=== PATIENT | male | born 1935 | race Caucasian/White ===

== ENCOUNTER 2017-10-02 18:04 | Inpatient (IN) ==
[2017-10-02] MEDS ORDERED: *HR* Dextrose 50 % in Water (Syg) 50 ML SYRINGE IVP PRN (20:31)
[2017-10-02] MEDS ORDERED: Dextrose Gel 15 GM/37.5 ML TUBE PO PRN ×2 (20:31)
[2017-10-02] MEDS ORDERED: D5% in Water 1,000 ML IVC PRN (20:31)
[2017-10-02] MEDS ORDERED: *HR* LORazepam 0.5 MG TABLET PO PRN (20:33)
[2017-10-02] MEDS ORDERED: Naloxone 0.4 MG/ML INJ IVP PRN (20:34)
[2017-10-02] MEDS ORDERED: Acetaminophen 325 MG TABLET PO PRN (20:34)
--- NOTE | 2017-10-02 20:39 | Internal Med History&Physical ---
Date of Encounter: 10/03/17 Time of Encounter: 20:35 Internal Medicine - H&P: HPI Chief complaint: femur fracture Admitted From: Direct Admit Plans for Post Hospital Care: Home History of present illness: Mr. Wang is a 82 year old male with PMH of CKD3, DM, hypothyroidism, BPH, lung cancer in remission who is transferred from [facility] as he was found to have a left comminuted fracture of the intertrochanteric portion of the left femoral neck. Rest of work up there showed mild leukocytosis and creatinine consistent with known CKD3. Patient had an accidental fall today while riding a cleaning porter. He went to step out and tripped on an air hose hitting concrete on his left side and was in pain and unable to move. No LOC. Denies fever/chills/ nausea/vomiting/blurry vision/headache/diarrhea/constipation/abdominal pain/ chest pain/shortness of breath/urinary symptoms/or neurological symptoms. Orthopedics were consulted from there and asked for the patient to transfer. EKG NSR with no ischemic changes. Patient is currently pain controlled Past Med Surg Social Fam HX - Past Medical History Medical history: cancer, diabetes, hyperlipidemia, hypertension Psychiatric history: no psych history - Past Surgical History Surgical History: herniorrhaphy, other - Social History Smoking Status: Former smoker Smokeless Tobacco Status: No Alcohol use: none Drug use: none - Family History Mother Living Status: Hx Family Cardiac Disorders: Yes Father Living Status: Internal Medicine - H&P: Meds Albuterol Sulfate [Albuterol Inhaler] 2 puff IH Q6HR PRN 12/19/14 [History] Levothyroxine Sodium [Synthroid] 50 mcg PO DAILY 12/19/14 [History] Finasteride [Proscar] 5 mg PO DAILY tablet 04/25/15 [Rx] Omeprazole [PriLOSEC] 40 mg PO QDPC #0 04/25/15 [Rx] Cyanocobalamin (B-12) [Vitamin B12] 1,000 mcg PO DAILY #90 tablet 11/13/16 [Rx] Folic Acid 1 mg PO DAILY #90 tablet 11/13/16 [Rx] GlipiZIDE [Glipizide Xl] 5 mg PO DAILY 11/13/16 [History] Pioglitazone HCl [Actos] 30 mg PO DAILY 11/13/16 [History] LORazepam [Ativan] 0.5 mg PO HS PRN 07/20/17 [History] Tamsulosin [Flomax] 0.4 mg PO DAILY 10/02/17 [History] 3 Allergy/AdvReac Type Severity Reaction Status Date / Time levofloxacin [From Levaquin] AdvReac Unknown Unknown Verified 07/20/17 11:56 iodine AdvReac Itching Verified 07/20/17 11:56 All Systems PM: A 10-system review of systems was performed and is negative for pertinent findings except as documented above in the HPI. Review of systems: All systems reviewed are negative except those mentioned above - Constitutional Vitals: Temp Pulse Resp BP Pulse Ox 98.2 F 92 16 155/91 97 10/02/17 20:03 10/02/17 20:03 10/02/17 20:03 10/02/17 20:03 10/02/17 20:03 Exam: GEN: NAD HEENT: AT, NC, No cyanosis, oral mucosa is moist, No JVD Lymphatics: No lymphadenoapthy Eyes: Extrocular muscles intact, anicteric CVS:RRR. S1, S2, No m/r/g RESP: CTAB ABD: Soft, NT, ND, +BS EXT: Left upper leg with swelling and deformity noted., unable to move it. Externally rotated. No rashes, 2+ DP NEURO: Nonfocal, CN II-XII intact, No focal motor or sensory deficits Psych: Cooperative, Not anxious or depressed Internal Med - H&P Results - Labs CBC & Chem 7: 10/03/17 00:25 10/03/17 00:25 - Assessment and plan (1) Femur fracture, left Current Visit: Yes Status: Acute Assessment and plan: Admit to hospitalist. Pain control. Consult orthopedics. Likely needs operative management for this. Nothing by mouth after midnight. Patient does not need any further cardiac workup to be cleared for surgery. Qualifiers: Encounter type: initial encounter Femur location: neck Fracture type: closed Qualified Code(s): S72.002A - Fracture of unspecified part of neck of left femur, initial encounter for closed fracture (2) BPH (benign prostatic hyperplasia) Current Visit: Yes Status: Acute Assessment and plan: Continue home tamsulosin. Qualifiers: Lower urinary tract symptom presence: symptoms absent Qualified Code(s): N40.0 - Benign prostatic hyperplasia without lower urinary tract symptoms (3) Diabetes mellitus Current Visit: Yes Status: Acute Assessment and plan: We will place the patient on insulin sliding scale. Accu-Cheks. Qualifiers: Diabetes mellitus type: type 2 Diabetes mellitus intermediate school teacher insulin use: without intermediate school teacher use Diabetes mellitus complication status: with kidney complications Diabetes mellitus complication detail: with chronic kidney disease Chronic kidney disease stage: stage 3 (moderate) Qualified Code(s): E11.22 - Type 2 diabetes mellitus with diabetic chronic kidney disease; N18.3 - Chronic kidney disease, stage 3 (moderate) (4) Hypothyroidism Current Visit: Yes Status: Acute Assessment and plan: Resume home thyroid medication. Qualifiers: Hypothyroidism type: unspecified Qualified Code(s): E03.9 - Hypothyroidism , unspecified (5) Lung cancer Current Visit: No Status: Chronic Assessment and plan: In remission. f/u with outpatient oncologist Qualifiers: Laterality: left Lung location: unspecified part of lung Qualified Code(s ): C34.92 - Malignant neoplasm of unspecified part of left bronchus or lung (6) DVT prophylaxis Current Visit: Yes Status: Acute Assessment and plan: heparin SQ. - Time Spent With Patient Total time spent is greater than 50% in coordination of care (as documented) at patient's floor/unit and/or counseling patient:
[2017-10-02] MEDS ORDERED: *HR* FentaNYL (PF) 100 MCG/2 ML VIAL IVP ONE (20:56)
[2017-10-02] MEDS ORDERED: *HR* Heparin 5,000 UNIT/ML VIAL SQ SCH (22:00)
--- NOTE | 2017-10-02 23:26 | Orthopedic Consult Note ---
Date of Encounter: 10/02/17 Time of Encounter: 23:22 History of Present Illness Chief complaint: Left hip pain HPI: Mr. Wang is a 82 year old male who sustained an injury to his left hip when he got tangled up in an air hose and he fell in his carotids landing on his left hip. Had immediate pain and was unable to ambulate. He presented to [facility] where x-rays taken revealed evidence of a left hip fracture. He was transferred to [facility] for definitive management. Patient denies other injuries. Denies neurovascular complaints. I reviewed the patient's completed history and physical examination as charted in the medical record. Examination reveals the left lower extremity to be held and a rotated and foreshortened position. Distal neurosensory exam is grossly intact. X-rays of the left hip reveal a displaced comminuted peritrochanteric-type fracture. Laboratory data includes a hemoglobin of 12.4 with a normal platelet count. Bleeding times are normal. BUN/creatinine are chronically elevated as patient has chronic kidney disease. Impression: Peritrochanteric fracture left hip Recommendation: I discussed with the patient that this is a surgical fracture in the adult and would recommend proceeding with intramedullary nailing of the left hip. We discussed the surgical procedure as well as potential risks and complications including but not limited to bleeding infection blood clots nerve injury stiffness malunion nonunion as well as rotational and leg length deformities. The patient understands and agrees with the surgical intervention. He has signed informed consent for the surgery. We will anticipate proceeding with surgery tomorrow when operating time and implants are available. Thank you very much for allowing me to seen care for Mr. Wang. Sincerely, Geovany Pond,DO Past Med Surg Social Fam HX - Past Medical History Medical history: cancer, diabetes, hyperlipidemia, hypertension Psychiatric history: no psych history - Past Surgical History Surgical History: herniorrhaphy, other - Social History Smoking Status: Former smoker Smokeless Tobacco Status: No Alcohol use: none Drug use: none - Family History Mother Living Status: Age at : 83 Cause of : MA Hx Family Cardiac Disorders: Yes Father Living Status: Age at : 83 Cause of : MA Medications and Allergies Albuterol Sulfate [Albuterol Inhaler] 2 puff IH Q6HR PRN 12/19/14 [History] Levothyroxine Sodium [Synthroid] 50 mcg PO DAILY 12/19/14 [History] Finasteride [Proscar] 5 mg PO DAILY tablet 04/25/15 [Rx] Omeprazole [PriLOSEC] 40 mg PO QDPC #0 04/25/15 [Rx] Cyanocobalamin (B-12) [Vitamin B12] 1,000 mcg PO DAILY #90 tablet 11/13/16 [Rx] Folic Acid 1 mg PO DAILY #90 tablet 11/13/16 [Rx] GlipiZIDE [Glipizide Xl] 5 mg PO DAILY 11/13/16 [History] Pioglitazone HCl [Actos] 30 mg PO DAILY 11/13/16 [History] LORazepam [Ativan] 0.5 mg PO HS PRN 07/20/17 [History] Tamsulosin [Flomax] 0.4 mg PO DAILY 10/02/17 [History] 3 Allergy/AdvReac Type Severity Reaction Status Date / Time levofloxacin [From Levaquin] AdvReac Unknown Unknown Verified 07/20/17 11:56 iodine AdvReac Itching Verified 07/20/17 11:56 All Systems Reviewed: The remainder of the systems were reviewed and are negative Physical Exam - Constitutional Vitals: Temp Pulse Resp BP Pulse Ox 98.2 F 92 16 155/91 97 10/02/17 20:03 10/02/17 20:03 10/02/17 20:03 10/02/17 20:03 10/02/17 20:03 Results - Labs Labs: All other labs normal. - Diagnostic results Hip x-ray: image reviewed Consult Discharge Plan - Plan Referrals: Tiara Dodge DO [Primary Care Provider] - NONE,PCP [Family Provider] -
[2017-10-02] MEDS: *HR* HYDROcodone/Acet 5/325 mg TABLET PO PRN (23:59)
[2017-10-02] MEDS: Insulin LISPRO 300 UNITS/3 ML VIAL SQ SCH (23:59)
[2017-10-03 00:36] LABS: Basophils % 0.2 %; Eosinophils % 0.1 %; Hematocrit 31.7 % (37.5-50.1); Hemoglobin 10.4 g/dL (12.9-16.9); Immature Granulocytes % 0.4 % (0-4); Lymphocytes # 1.5 K/mcL (0.6-4.6); Lymphocytes % 15.9 %; Mean Corpuscular HGB Conc 32.8 g/dL (31.6-35.5); Mean Corpuscular Hemoglobin 28.9 pg (28.0-33.3); Mean Corpuscular Volume 88.1 fL (83.0-100.0); Mean Platelet Volume 9.1 fL (9.4-12.4); Monocytes % 10.7 %; Neutrophils # 6.8 K/mcL (1.6-8.9); Nucleated Red Blood Cells 0.2 /100 WBC (0); Platelet Count 210 K/mcL (140-400); Red Cell Distribution Width 14.1 % (11.5-14.5); Segmented Neutrophils % 72.7 %
[2017-10-03 00:56] LABS: Calcium 8.8 mg/dL (8.6-10.3); Magnesium 1.9 mg/dL (1.6-2.6); Potassium 5.3 mEq/L (3.5-5.1)
[2017-10-03] MEDS: Insulin LISPRO 300 UNITS/3 ML VIAL SQ SCH ×2 (05:48→18:09)
[2017-10-03] MEDS: *HR* HYDROcodone/Acet 5/325 mg TABLET PO PRN ×2 (05:48→22:07)
[2017-10-03] MEDS ORDERED: CeFAZolin Pre 2,000 MG/100 ML 2,000 MG/100 ML BAG IVPB ONE (08:00)
--- NOTE | 2017-10-03 08:10 | Anesthesia Evaluation PreOp ---
Date of Encounter: 10/03/17 Time of Encounter: 08:30 - Past History Planned Operation: Left IM Nailing Cardiac History: HTN, Hyperlipidemia Pulmonary History: Denies Any Significant HX HAND MOLD MAKER History: Denies Any Significant HX Other Medical History: Renal (CKD Stage 3), Diabetes Type II Anesthesia History: No Prior Anesthetic Complications Alcohol Use: none Drug use: none Medications and Allergies Albuterol Sulfate [Albuterol Inhaler] 2 puff IH Q6HR PRN 12/19/14 [History] Levothyroxine Sodium [Synthroid] 50 mcg PO DAILY 12/19/14 [History] Finasteride [Proscar] 5 mg PO DAILY tablet 04/25/15 [Rx] Omeprazole [PriLOSEC] 40 mg PO QDPC #0 04/25/15 [Rx] Cyanocobalamin (B-12) [Vitamin B12] 1,000 mcg PO DAILY #90 tablet 11/13/16 [Rx] Folic Acid 1 mg PO DAILY #90 tablet 11/13/16 [Rx] GlipiZIDE [Glipizide Xl] 5 mg PO DAILY 11/13/16 [History] Pioglitazone HCl [Actos] 30 mg PO DAILY 11/13/16 [History] LORazepam [Ativan] 0.5 mg PO HS PRN 07/20/17 [History] Tamsulosin [Flomax] 0.4 mg PO DAILY 10/02/17 [History] 3 Allergy/AdvReac Type Severity Reaction Status Date / Time levofloxacin [From Levaquin] AdvReac Unknown Unknown Verified 07/20/17 11:56 iodine AdvReac Itching Verified 07/20/17 11:56 - Meds/Allergy Pre-op Review Medications Reviewed: Yes Allergies Reviewed: Yes Beta Blockers on Current Med List: No Anesthesia Results - Labs 10/03/17 00:25 10/03/17 00:25 - Imaging Additional studies: ECHO 2014 EF 70%, mild left ventricular outlet obstruction, no pulm htn Anesthesia Exam Vital Signs/O2 Sat/Glucose, Most Current Temp Pulse Resp BP Pulse Ox 10/03/17 07:30 100 10/03/17 06:37 98.6 F 87 17 103/56 100 10/03/17 04:15 98.1 F 61 16 124/62 95 Height: 5'7 Weight: 205 lbs NPO (# of Hours): MN Pain Scale: 2 - HEENT Pupil (Motor): Pupils equal, EOMI Mallampati: II Oral Opening: Greater than 3 - HAND MOLD MAKER LOC: Oriented HAND MOLD MAKER Motor: Normal RUE, Normal LUE, Normal RLE, Normal LLE, Normal Face HAND MOLD MAKER Sensory: Normal: RUE, LUE, RLE, LLE, Face - Cardiac Rhythm: Regular Murmur: None JVD: No Carotid Bruit: No - Pulmonary Breath Sounds: bilateral Clear Respiratory Effort: Symmetrical Anesthesia Assess/Plan ASA Score: 3 (HTN DM CKD) Modified [place] Scale for Level of Consciousness: Cooperative, oriented, and tranquil Anesthetic Plan: General, Regional Monitoring Plan: Standard Monitors Recovery Plan: PACU (Discussed GA and possible RA, agrees to proceed)
[2017-10-03] MEDS ORDERED: *HR* Propofol 200 MG/20 ML VIAL IVP ONE (08:23)
[2017-10-03] MEDS ORDERED: *HR* FentaNYL (PF) 100 MCG/2 ML VIAL ONE ×2 (08:23→11:50)
[2017-10-03] MEDS ORDERED: *HR* Midazolam HCl 2 MG/2 ML VIAL ONE (08:23)
--- NOTE | 2017-10-03 08:28 | Internal Med Progress Note ---
Date of Encounter: 10/03/17 Time of Encounter: 08:00 - Assessment and plan (1) Femur fracture, left Current Visit: Yes Status: Acute Assessment and plan: Plan for intramedullary nailing of the left hip at 9 AM today. Patient is at low risk for cardiac events for his planned noncardiac moderate risk procedure. Qualifiers: Encounter type: initial encounter Femur location: neck Fracture type: closed Qualified Code(s): S72.002A - Fracture of unspecified part of neck of left femur, initial encounter for closed fracture (2) Lung cancer Current Visit: No Status: Chronic Assessment and plan: Metastatic adenocarcinoma of the left lung. "Diagnosis: 1. Metastatic adenocarcinoma of the lung. Initially diagnosed with moderately differentiated adenocarcinoma by bronchoscopy 08/08/14. KRAS/P53 positive. Staging studies revealed left > right adrenal lesions with biopsy 08/28/14 confirming left adrenal metastasis. Received carbo/pemetrexed 08/23-12/07/14 with a good response followed by concurrent chemoradiation with weekly carboplatin/ paclitaxel completed 02/12/25. He has been cancer free since. 2. 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 Carboplatin with pemetrexed 08/23-12/07/14 2. Concurrent chemoradiation with weekly Carboplatin and Paclitaxel 01/03-" Qualifiers: Laterality: left Lung location: unspecified part of lung Qualified Code(s ): C34.92 - Malignant neoplasm of unspecified part of left bronchus or lung (3) BPH (benign prostatic hyperplasia) Current Visit: Yes Status: Acute Assessment and plan: Continue home tamsulosin. Qualifiers: Lower urinary tract symptom presence: symptoms absent Qualified Code(s): N40.0 - Benign prostatic hyperplasia without lower urinary tract symptoms (4) Diabetes mellitus Current Visit: Yes Status: Acute Assessment and plan: We will place the patient on insulin sliding scale. Accu-Cheks. Qualifiers: Diabetes mellitus type: type 2 Diabetes mellitus prison insulin use: without prison use Diabetes mellitus complication status: with kidney complications Diabetes mellitus complication detail: with chronic kidney disease Chronic kidney disease stage: stage 3 (moderate) Qualified Code(s): E11.22 - Type 2 diabetes mellitus with diabetic chronic kidney disease; N18.3 - Chronic kidney disease, stage 3 (moderate) (5) Hypothyroidism Current Visit: Yes Status: Acute Assessment and plan: Resume home thyroid medication. Qualifiers: Hypothyroidism type: unspecified Qualified Code(s): E03.9 - Hypothyroidism , unspecified (6) DVT prophylaxis Current Visit: Yes Status: Acute Assessment and plan: heparin SQ. - Time Spent With Patient Total time spent is greater than 50% in coordination of care (as documented) at patient's floor/unit and/or counseling patient: 25 - 35 minutes - Subjective Interval history: Reports no pain in the left leg. Intact sensations. Intact circulation to the distal lower extremity. No events overnight. Plan for surgery today morning. - Constitutional Vitals: Temp Pulse Resp BP Pulse Ox 98.6 F 87 17 103/56 100 10/03/17 06:37 10/03/17 06:37 10/03/17 06:37 10/03/17 06:37 10/03/17 07:30 Exam: Physical exam Gen: Comfortable, laying in bed, in no visible distress HEENT: Normocephalic, atraumatic. No conjunctival icterus. Moist oral mucosa. Neck: Supple Lungs: Diminished to auscultation, no foreign sounds Heart: Normal S1-S2, no murmurs rubs or gallops Abdomen: Normoactive bowel sounds, no guarding rigidity or tenderness Extremities: No edema clubbing or cyanosis. Left leg is externally rotated and foreshortened. Neuro: Alert oriented 3, no focal deficits Skin: No skin lesions Internal Medicine: Result - Labs CBC & Chem 7: 10/03/17 00:25 10/03/17 00:25 Labs: Short CBC 10/03/17 Range/Units 00:25 WBC 9.3 (4.3-11.1) K/mcL Hgb 10.4 L D (12.9-16.9) g/dL Hct 31.7 L (37.5-50.1) % Plt Count 210 (140-400) K/mcL Neutrophils # 6.8 (1.6-8.9) K/mcL BMP 10/03/17 00:25 Sodium 138 Potassium 5.3 H Chloride 107 Carbon Dioxide 27 BUN 36 H Creatinine 1.53 H Glucose 266 H Calcium 8.8 Consult Discharge Plan - Plan Referrals: Tiara Dodge DO [Primary Care Provider] - NONE,PCP [Family Provider] -
[2017-10-03] MEDS ORDERED: ceFAZolin 2,000 MG in Water for inj. (sterile) 20 ML 10 ML IVP ONE (08:35)
[2017-10-03] MEDS ORDERED: Famotidine 20 MG/2 ML VIAL ONE (08:41)
[2017-10-03] MEDS ORDERED: Acetaminophen IV 1,000 MG/100 ML INFUS..BTL ONE (08:41)
[2017-10-03] MEDS ORDERED: Finasteride 5 MG TABLET PO SCH (09:00)
[2017-10-03] MEDS ORDERED: Folic Acid 1 MG TABLET PO SCH (09:00)
[2017-10-03] MEDS ORDERED: Cyanocobalamin (B-12) 1,000 MCG TABLET PO SCH (09:00)
[2017-10-03] MEDS ORDERED: *HR* OxyCODONE Immed Rel 5 MG TABLET PO PRN (10:24)
[2017-10-03] MEDS ORDERED: *HR* FentaNYL (PF) 100 MCG/2 ML VIAL IVP PRN (10:24)
[2017-10-03] MEDS ORDERED: ROPIVACAINE HCL/PF 0.5% 30 ML VIAL ONE (12:01)
--- NOTE | 2017-10-03 12:31 | Operative Note ---
Date of procedure: 10/03/17 Pre-op diagnosis: Peritrochanteric fracture left hip Post-op diagnosis: same Procedure: 1. Intramedullary nailing left peritrochanteric femur fracture 2. Fluoroscopic guidance for IM nailing left femur Implants: Synthes 11 mm x 360 mm x 130 degree angle TFNA with a 100 mm x 11 mm helical blade and a 42 mm x 5.0 mm distal locking screw Complications: None Anesthesia: GETA Surgeon: Geovany Pond Was there an pharmacy sales assistant present: No Estimated blood loss (cc): 150 Specimen: None Condition: stable (None) Disposition: PACU Procedure in Detail: Gross findings: Preoperative x-rays revealed a complex comminuted peritrochanteric-type fracture of the left hip in this 82-year-old gentleman. Bone quality appeared good. There was deformity. The fracture was reduced into overall excellent position. There were at least 5 major fracture fragments. The fracture was then stabilized with a long trochanteric femoral nail with distal locking. A well reduced fracture with excellent implant position was identified with multiplane are fluoroscopy. Procedure: Patient was taken the operating room him on the hospital bed was administered general anesthesia. Once adequate level anesthesia had been obtained the patient was transferred to the [facility] fracture table. Left lower extremity was placed in longitudinal traction right lower extremity was positioned out of harm's way with a well leg packer. At this time initial reduction was performed utilizing a combination of traction adduction and some internal rotation. The fracture was markedly improved with still some offset. The left hip and leg were then prepped and draped in normal standard fashion for surgery. Incision was created superior to the greater trochanter. She was carried through the abundant adipose tissue down the level of the tensor fascia rene which was split parallel with its fibers. Fracture hematoma was encountered and evacuated. The tip of the trochanter was identified. The initial guidewire was plateau passed into the trochanter and the greater trochanter was opened up with the large reamer. At this time a ball-tip guide wire was passed through the opening created in the greater trochanter and passed down the femur with position verified to be intramedullary with multiplane are fluoroscopy. Length was measured and a 360 mm nail length was selected. At this time the canal was reamed with flexible reamers up to including a size 12.5 mm. The selected nail was then placed on the insertion jig passed over the wire and then entered into the femur and seated. The nail was well position. With the lateral x-rays there was some persistent anterior angulation of the neck. With the 130 degree guide a pin was placed in the central position on both the AP and lateral views. A second pin was used to create an anti-rotational stabilizer utilizing the guide as well. Multiplane are fluoroscopy verified excellent position of both threaded pins. The blade length was measured and a 100 mm was selected. Head and neck were then reamed. This is followed by impacting the helical blade into position. The helical blade was then locked from above and then the fracture was compressed securing the fixation. Multiplane are fluoroscopy was again used to verify excellent position of the fracture and the implants. Guidewires were removed. Attention was then turned to the distal locking. Utilizing fluoroscopic guidance under freehand technique a distal locking screw was placed through the static hole. This is now followed by removal of the insertion jig and performing multiplane are fluoroscopy verifying excellent position of the fracture and implants. Wounds now irrigated and closed. The 2 proximal wounds were closed with #1 Vicryl in the fascia followed by #1 Vicryl in the deep subcutaneous tissue and then immediate septated his tissue approximation with inverted interrupted 2-0 undyed Vicryl followed by skin approximation with a running septic her stitches of 30 strata fix. Distal wound was closed with the subcutaneous stitch of 2-0 undyed Vicryl. All wounds were then reinforced with pernio skin glue and then operative foam. Patient was then awakened from anesthesia extubating operating room and transferred to the postanesthesia care unit in stable and satisfactory condition. All sponge needle evidence for counts are correct. No specimens are sent for pathology.
--- NOTE | 2017-10-03 13:19 | Anesthesia Procedures ---
Date of Encounter: 10/03/17 Time of Encounter: 08:30 Procedures: Anesthesia - Nerve Block Procedure Date: 10/03/17 Time: 12:15 Pre-op Diagnosis: Fracture Left Hip Surgical Procedure: IM Nailing Left Hip Checklist: Correct Patient Identifier Correct side: Left Blood Thinner: No Monitor Applied: EKG, BP, Pulse Oximetry Indication: Post Op Analgesia (Rescue Block) Pre-op Neuro Deficits: No Block Type: Other (Fascia Iliaca) Catheter placed: No Sterile Technique: Yes Ultrasound used: Yes Anatomy identified: Yes Visual spread of Local: Yes Neuro Stimulation: No Blood on Needle Aspiration: No Smooth Injection of Local: Yes Pain with Injection of Local: No Prep: Chlorhexadine Needle: 22 x 50 mm Stimuplex Local: Ropivacaine, Other (Lidocaine) Volume (cc): 50cc Number of Attempts: 1 Complications: None/effective block Vitals: Vital Signs/O2 Sat/Glucose, Most Current Temp Pulse Resp BP Pulse Ox 10/03/17 13:10 97.7 F 84 16 104/62 98 10/03/17 13:00 97.7 F 84 16 104/62 98 10/03/17 12:33 97.3 F L 85 16 117/62 100 10/03/17 12:23 97.3 F L 82 16 126/61 96 10/03/17 12:13 84 17 133/69 99 10/03/17 12:03 83 16 123/75 97 10/03/17 11:53 99.0 F 83 16 105/65 94
[2017-10-03] MEDS ORDERED: *HR* LORazepam 0.5 MG TABLET PO PRN (13:20)
[2017-10-03] MEDS ORDERED: D5% in Water 1,000 ML IVC PRN ×2 (13:20→17:13)
[2017-10-03] MEDS ORDERED: Naloxone 0.4 MG/ML INJ IVP PRN (13:20)
[2017-10-03] MEDS ORDERED: Dextrose Gel 15 GM/37.5 ML TUBE PO PRN ×4 (13:20→17:13)
[2017-10-03] MEDS ORDERED: Acetaminophen 325 MG TABLET PO PRN (13:20)
[2017-10-03] MEDS ORDERED: *HR* Dextrose 50 % in Water (Syg) 50 ML SYRINGE IVP PRN ×2 (13:20→17:13)
[2017-10-03] MEDS: CeFAZolin Pre 2,000 MG/100 ML 2,000 MG/100 ML BAG IVPB SCH ×2 (16:22→23:41)
[2017-10-03] MEDS ORDERED: Insulin LISPRO 300 UNITS/3 ML VIAL SQ SCH ×2 (18:00→21:00)
[2017-10-03] MEDS: *HR* Enoxaparin 30 MG/0.3 ML SYRINGE SQ SCH (18:09)
[2017-10-03] MEDS: *HR* OxyCODONE Immed Rel 5 MG TABLET PO PRN (19:58)
[2017-10-04 01:39] LABS: Basophils % 0.2 %; Eosinophils # 0.1 K/mcL (0.0-0.6); Eosinophils % 1.4 %; Hematocrit 25.9 % (37.5-50.1); Immature Granulocytes % 0.5 % (0-4); Lymphocytes # 1.9 K/mcL (0.6-4.6); Lymphocytes % 23.4 %; Mean Corpuscular Hemoglobin 28.5 pg (28.0-33.3); Mean Platelet Volume 9.4 fL (9.4-12.4); Monocytes # 0.9 K/mcL (0.0-1.3); Monocytes % 11.1 %; Neutrophils # 5.2 K/mcL (1.6-8.9); Platelet Count 174 K/mcL (140-400); Red Blood Count 2.91 M/mcL (4.19-5.50); Red Cell Distribution Width 14.5 % (11.5-14.5); Segmented Neutrophils % 63.4 %
[2017-10-04 01:40] LABS: Hemoglobin 8.3 g/dL (12.9-16.9)
[2017-10-04 01:59] LABS: Calcium 8.2 mg/dL (8.6-10.3); Magnesium 1.9 mg/dL (1.6-2.6); Potassium 4.4 mEq/L (3.5-5.1)
[2017-10-04] MEDS: *HR* OxyCODONE Immed Rel 5 MG TABLET PO PRN ×3 (04:22→16:23)
[2017-10-04] MEDS: *HR* Enoxaparin 30 MG/0.3 ML SYRINGE SQ SCH ×2 (05:28→18:52)
[2017-10-04] MEDS: Insulin LISPRO 300 UNITS/3 ML VIAL SQ SCH ×5 (08:08→22:58)
[2017-10-04] MEDS: Folic Acid 1 MG TABLET PO SCH (08:12)
[2017-10-04] MEDS: Finasteride 5 MG TABLET PO SCH (08:12)
[2017-10-04] MEDS: Cyanocobalamin (B-12) 1,000 MCG TABLET PO SCH (08:12)
--- NOTE | 2017-10-04 13:12 | Internal Med Progress Note ---
Date of Encounter: 10/04/17 Time of Encounter: 13:10 - Assessment and plan (1) Femur fracture, left Current Visit: Yes Status: Acute Assessment and plan: Postoperative day 0 Intramedullary nailing left peritrochanteric femur fracture Pain control per primary team (2) Lung cancer Current Visit: No Status: Chronic Assessment and plan: Metastatic adenocarcinoma of the left lung. "Diagnosis: 1. Metastatic adenocarcinoma of the lung. Initially diagnosed with moderately differentiated adenocarcinoma by bronchoscopy 08/08/14. KRAS/P53 positive. Staging studies revealed left > right adrenal lesions with biopsy 08/28/14 confirming left adrenal metastasis. Received carbo/pemetrexed 08/23-12/07/14 with a good response followed by concurrent chemoradiation with weekly carboplatin/ paclitaxel completed 02/12/25. He has been cancer free since. 2. 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 Carboplatin with pemetrexed 08/23-12/07/14 2. Concurrent chemoradiation with weekly Carboplatin and Paclitaxel 01/03-" Qualifiers: Laterality: left Lung location: unspecified part of lung Qualified Code(s ): C34.92 - Malignant neoplasm of unspecified part of left bronchus or lung (3) BPH (benign prostatic hyperplasia) Current Visit: Yes Status: Acute Assessment and plan: Continue home tamsulosin. Qualifiers: Lower urinary tract symptom presence: symptoms absent Qualified Code(s): N40.0 - Benign prostatic hyperplasia without lower urinary tract symptoms (4) Diabetes mellitus Current Visit: Yes Status: Acute Assessment and plan: We will place the patient on insulin sliding scale. Accu-Cheks. Qualifiers: Diabetes mellitus type: type 2 Diabetes mellitus half-way insulin use: without credit review officer use Diabetes mellitus complication status: with kidney complications Diabetes mellitus complication detail: with chronic kidney disease Chronic kidney disease stage: stage 3 (moderate) Qualified Code(s): E11.22 - Type 2 diabetes mellitus with diabetic chronic kidney disease; N18.3 - Chronic kidney disease, stage 3 (moderate) (5) Hypothyroidism Current Visit: Yes Status: Acute Assessment and plan: Resume home thyroid medication. Qualifiers: Hypothyroidism type: unspecified Qualified Code(s): E03.9 - Hypothyroidism , unspecified (6) Acute blood loss anemia Current Visit: Yes Status: Acute (7) DVT prophylaxis Current Visit: Yes Status: Acute Assessment and plan: heparin SQ. - Time Spent With Patient Total time spent is greater than 50% in coordination of care (as documented) at patient's floor/unit and/or counseling patient: 25 - 35 minutes - Subjective Interval history: Reports adequately controlled pain in the left leg. Intact sensations. Intact circulation to the distal lower extremity. No events overnight. - Constitutional Vitals: Temp Pulse Resp BP Pulse Ox 99.3 F 106 16 119/67 95 10/04/17 11:46 10/04/17 11:46 10/04/17 11:46 10/04/17 11:46 10/04/17 11:46 Exam: Physical exam Gen: Comfortable, laying in bed, in no visible distress HEENT: Normocephalic, atraumatic. No conjunctival icterus. Moist oral mucosa. Neck: Supple Lungs: Clear to auscultation, no foreign sounds Heart: Normal S1-S2, no murmurs rubs or gallops Abdomen: Normoactive bowel sounds, no guarding rigidity or tenderness Extremities: No edema clubbing or cyanosis Neuro: Alert oriented 3, no focal deficits Skin: No skin lesions. Left leg surgical site was not opened. Internal Medicine: Result - Labs CBC & Chem 7: 10/04/17 01:16 10/04/17 01:16 Labs: Short CBC 10/04/17 Range/Units 01:16 WBC 8.1 (4.3-11.1) K/mcL Hgb 8.3 L D (12.9-16.9) g/dL Hct 25.9 L (37.5-50.1) % Plt Count 174 (140-400) K/mcL Neutrophils # 5.2 (1.6-8.9) K/mcL BMP 10/04/17 01:16 Sodium 139 Potassium 4.4 Chloride 109 H Carbon Dioxide 24 BUN 37 H Creatinine 1.60 H Glucose 81 Calcium 8.2 L - VTE Documentation of Mechanical Device: Venous foot pump, device Consult Discharge Plan - Plan Referrals: Tiara Dodge DO [Primary Care Provider] - NONE,PCP [Family Provider] -
--- NOTE | 2017-10-04 14:18 | Orthopedics Progress Note ---
Date of Encounter: 10/04/17 Time of Encounter: 14:15 Subjective Principal diagnosis: Peritrochanteric fracture left femur Interval history: 10/04/2017. Patient is postop day #1 from long trochanteric femoral nail of a complex comminuted peritrochanteric fracture. He is doing quite well. He seated in the chair at bedside. Pain is well-controlled. Vital signs are stable. Patient is afebrile. The proximal and distal dressings are clean and dry. There is some bloody drainage on the middle incision dressing. Neurovascular exam is normal. Hemoglobin is 8.3. Platelet count is 174. White blood cell count is normal. Kidney function is elevated though stable. Blood sugar is elevated as would be anticipated in the immediate perioperative period. Impression: POD #1 IM nailing left peritrochanteric femur fracture, status stable. Recommendation: Discussed with the patient and family again at length the surgical procedure in the findings. Would recommend the patient consider short- term rehabilitation in light of the weightbearing limitations to touchdown weightbearing only. He must be safe to go home. Discussed this with the patient who is quite adamant that he wants to go home though it has not really worked with therapy. Recheck labs in a.m. Objective Vital signs: Vital Signs Temp Pulse Resp BP Pulse Ox 10/04/17 11:46 99.3 F 106 16 119/67 95 10/04/17 08:00 94 10/04/17 06:24 97.7 F 107 17 113/71 94 10/04/17 04:10 98.1 F 96 14 111/64 93 10/03/17 23:12 99.4 F 100 16 99/58 94 10/03/17 18:39 99.5 F 104 16 123/70 93 10/03/17 15:38 98.7 F 97 17 112/85 92 Intake and Output 10/03/17 10/04/17 10/04/17 23:59 07:59 15:59 Intake Total 100 / 100 480 / 480 Output Total 250 / 250 400 / 400 Balance -150 / -150 -400 / -400 480 / 480 Intake: IV Fluids 100 / 100 Ancef Premix 2,000 MG/100 ML 2, 100 / 100 000 mg In 100 ml @ 200 mls/hr IVPB Q8HR [facility] Rx#:[id number] Oral 480 / 480 Output: Urine 250 / 250 400 / 400 Other: Meal Lunch Percent of Meal Consumed 30% # Voids 1 Blood Glucose* 242 186 191 - Labs CBC & BMP: 10/04/17 01:16 10/04/17 01:16 Labs: Abnormal lab results RBC 2.91 M/mcL (4.19-5.50) L 10/04/17 01:16 Hgb 8.3 g/dL (12.9-16.9) L D 10/04/17 01:16 Hct 25.9 % (37.5-50.1) L 10/04/17 01:16 Nucleated RBCs/100 WBC 0.2 /100 WBC (0) H 10/03/17 00:25 Chloride 109 mEq/L (98-107) H 10/04/17 01:16 BUN 37 mg/dL (8-23) H 10/04/17 01:16 Creatinine 1.60 mg/dL (0.70-1.30) H 10/04/17 01:16 Est GFR ( Amer) 50 (> 60) L 10/04/17 01:16 Est GFR (Non-Af Amer) 41 (> 60) L 10/04/17 01:16 POC Glucose 186 mg/dL (70-99) H 10/04/17 07:55 Calcium 8.2 mg/dL (8.6-10.3) L 10/04/17 01:16 - VTE Documentation of Mechanical Device: Venous foot pump, device Consult Discharge Plan - Plan Referrals: Tiara Dodge DO [Primary Care Provider] - NONE,PCP [Family Provider] -
[2017-10-05 02:13] LABS: Basophils % 0.1 %; Eosinophils # 0.2 K/mcL (0.0-0.6); Eosinophils % 2.8 %; Hematocrit 22.2 % (37.5-50.1); Immature Granulocytes % 0.9 % (0-4); Lymphocytes # 1.6 K/mcL (0.6-4.6); Lymphocytes % 22.9 %; Mean Corpuscular HGB Conc 31.5 g/dL (31.6-35.5); Mean Corpuscular Hemoglobin 27.8 pg (28.0-33.3); Mean Corpuscular Volume 88.1 fL (83.0-100.0); Mean Platelet Volume 9.6 fL (9.4-12.4); Monocytes # 0.8 K/mcL (0.0-1.3); Monocytes % 10.9 %; Neutrophils # 4.3 K/mcL (1.6-8.9); Platelet Count 160 K/mcL (140-400); Red Blood Count 2.52 M/mcL (4.19-5.50); Red Cell Distribution Width 14.6 % (11.5-14.5); Segmented Neutrophils % 62.4 %
[2017-10-05 02:30] LABS: Calcium 8.3 mg/dL (8.6-10.3); Potassium 4.4 mEq/L (3.5-5.1)
[2017-10-05] MEDS: *HR* Enoxaparin 30 MG/0.3 ML SYRINGE SQ SCH (05:53)
[2017-10-05] MEDS: Insulin LISPRO 300 UNITS/3 ML VIAL SQ SCH ×4 (08:37→20:57)
[2017-10-05] MEDS: Folic Acid 1 MG TABLET PO SCH (08:37)
[2017-10-05] MEDS: Cyanocobalamin (B-12) 1,000 MCG TABLET PO SCH (08:37)
[2017-10-05] MEDS: Finasteride 5 MG TABLET PO SCH ×2 (08:38)
[2017-10-05] MEDS: *HR* OxyCODONE Immed Rel 5 MG TABLET PO PRN ×3 (10:50→20:10)
--- NOTE | 2017-10-05 13:04 | Internal Med Progress Note ---
Date of Encounter: 10/05/17 Time of Encounter: 13:01 - Assessment and plan (1) Diabetes 1.5, managed as type 2 Current Visit: Yes Status: Chronic Assessment and plan: Chronic we will continue on sliding scale (2) HTN (hypertension) Current Visit: Yes Status: Chronic Assessment and plan: Chronic and well controlled Qualifiers: Hypertension type: essential hypertension Qualified Code(s): I10 - Essential (primary) hypertension (3) Femur fracture, left Current Visit: Yes Status: Acute Assessment and plan: post surgery no complication Qualifiers: Encounter type: initial encounter Femur location: neck Fracture type: closed Qualified Code(s): S72.002A - Fracture of unspecified part of neck of left femur, initial encounter for closed fracture (4) Diabetes mellitus Current Visit: Yes Status: Chronic Assessment and plan: We will continue on sliding scale Qualifiers: Diabetes mellitus type: type 2 Diabetes mellitus shelter insulin use: without bed bug exterminator use Diabetes mellitus complication status: with kidney complications Diabetes mellitus complication detail: with chronic kidney disease Chronic kidney disease stage: stage 3 (moderate) Qualified Code(s): E11.22 - Type 2 diabetes mellitus with diabetic chronic kidney disease; N18.3 - Chronic kidney disease, stage 3 (moderate) (5) Acute blood loss anemia Current Visit: Yes Status: Acute Assessment and plan: Patient hemoglobin is 7 no active bleeding will benefit from blood transfusion (6) Lung cancer Current Visit: No Status: Chronic Assessment and plan: Patient undergoing chemotherapy Qualifiers: Laterality: left Lung location: unspecified part of lung Qualified Code(s ): C34.92 - Malignant neoplasm of unspecified part of left bronchus or lung - Time Spent With Patient Total time spent is greater than 50% in coordination of care (as documented) at patient's floor/unit and/or counseling patient: - Subjective Interval history: Patient with metastatic lung cancer, CK D, diabetes, obesity, hypertension and hypothyroidism. Patient was admitted with a left hip fracture underwent surgery since postop day #2 patient reported that she is doing better noted hemoglobin is down to 7 I discussed with her about receiving blood transfusion which is agreeable no chest pain - Constitutional Vitals: Temp Pulse Resp BP Pulse Ox 98.6 F 109 16 122/66 94 10/05/17 12:02 10/05/17 12:02 10/05/17 12:02 10/05/17 12:02 10/05/17 12:02 General appearance: Present: mild distress - Eye Eye exam: Present: PERRL, conjuntiva pink, sclera anicteric Pupils: Present: PERRL - Neck Neck exam general surgery: Present: supple, trachea midline. Absent: lymphadenopathy - Respiratory Respiratory exam: Present: rhonchi - Cardiovascular Cardiovascular exam: Present: RRR, +S1, +S2. Absent: diastolic murmur, gallop, rubs, systolic murmur - GI/Abdominal GI/Abdominal exam: Present: normal bowel sounds, soft, no peritoneal signs. Absent: distended, tenderness Internal Medicine: Result - Labs CBC & Chem 7: 10/05/17 01:08 10/05/17 01:08 Labs: Short CBC 10/05/17 Range/Units 01:08 WBC 6.9 (4.3-11.1) K/mcL Hgb 7.0 L (12.9-16.9) g/dL Hct 22.2 L (37.5-50.1) % Plt Count 160 (140-400) K/mcL Neutrophils # 4.3 (1.6-8.9) K/mcL BMP 10/05/17 01:08 Sodium 136 Potassium 4.4 Chloride 107 Carbon Dioxide 22 L BUN 37 H Creatinine 1.52 H Glucose 190 H Calcium 8.3 L - VTE Documentation of Mechanical Device: Venous foot pump, device Consult Discharge Plan - Plan Referrals: Tiara Dodge DO [Primary Care Provider] - NONE,PCP [Family Provider] -
[2017-10-05] MEDS ORDERED: 0.9 % Sodium Chloride 250 ML ONE ×2 (14:09→23:07)
--- NOTE | 2017-10-05 14:19 | Electrocardiograph Report ---
[place] [id number] Test Date: 2017-10-03 Pat Name: Iban Wang Department: 114 Room: [facility] Gender: M Cloth Reeler: MJ : 1935 Requested By: Marleni Quinonez Order Number: [id number] Reading MD: Carey Brunson Measurements Intervals [place] Rate: 92 P: 31 OK: 174 QRS: -43 QRSD: 78 T: 57 QT: 337 QTc: 387 Interpretive Statements SINUS RHYTHM LEFTWARD AXIS Electronically Signed On 10-05-2017 14:18:28 EDT by Carey Brunson
--- NOTE | 2017-10-05 20:45 | Orthopedics Progress Note ---
Date of Encounter: 10/05/17 Time of Encounter: 20:43 Subjective Principal diagnosis: Peritrochanteric fracture left femur Interval history: 10/04/2017. Patient is postop day #1 from long trochanteric femoral nail of a complex comminuted peritrochanteric fracture. He is doing quite well. He seated in the chair at bedside. Pain is well-controlled. Vital signs are stable. Patient is afebrile. The proximal and distal dressings are clean and dry. There is some bloody drainage on the middle incision dressing. Neurovascular exam is normal. Hemoglobin is 8.3. Platelet count is 174. White blood cell count is normal. Kidney function is elevated though stable. Blood sugar is elevated as would be anticipated in the immediate perioperative period. Impression: POD #1 IM nailing left peritrochanteric femur fracture, status stable. Recommendation: Discussed with the patient and family again at length the surgical procedure in the findings. Would recommend the patient consider short- term rehabilitation in light of the weightbearing limitations to touchdown weightbearing only. He must be safe to go home. Discussed this with the patient who is quite adamant that he wants to go home though it has not really worked with therapy. Recheck labs in a.m. 10/05/2017. Patient postop day 2 from IM nailing of a left hip fracture. He is doing well overall. Pain is anticipated. Vital signs are stable. Patient is afebrile although did have a temperature of 99+. The proximal and distal dressings remain clean and dry with the mid incision dressing being somewhat saturated and was some leakage. Thigh is quite edematous. Hemoglobin is down to 7.0. White blood cell count remains normal. Platelet count slowly dropping though still remains normal. Impression: POD #2 IM nailing left peritrochanteric femur fracture, status stable 2. Acute blood loss anemia secondary to femur fracture Recommendation: We will change the apical dressings today. Agree with packed red blood cells. Discussed with the patient the findings and the current treatment plan. We will recheck labs in a.m. director professional services for discharge planning. Objective Vital signs: Vital Signs Temp Pulse Resp BP Pulse Ox 10/05/17 18:29 18 92 10/05/17 18:06 99.9 F H 112 20 97/59 91 10/05/17 14:43 99.5 F 103 12 109/66 93 10/05/17 14:30 99.3 F 105 16 115/66 93 10/05/17 12:02 98.6 F 109 16 122/66 94 10/05/17 07:25 98.7 F 97 16 128/74 93 10/05/17 04:06 98.9 F 101 16 131/67 93 10/04/17 23:30 98.9 F 104 16 125/70 93 Intake and Output 10/05/17 10/05/17 10/05/17 07:59 15:59 23:59 Intake Total 700 / 700 509 / 509 Output Total 600 / 600 0 / 0 Balance -600 / -600 700 / 700 509 / 509 Intake: Oral 700 / 700 200 / 200 Blood Product 0 / 0 309 / 309 Rbcs Leuko Poor As-1 Unit 0 / 0 309 / 309 [id number] Output: Urine 600 / 600 0 / 0 Other: Blood Glucose* 187 201 157 - Labs CBC & BMP: 10/05/17 01:08 10/05/17 01:08 Labs: Abnormal lab results RBC 2.52 M/mcL (4.19-5.50) L 10/05/17 01:08 Hgb 7.0 g/dL (12.9-16.9) L 10/05/17 01:08 Hct 22.2 % (37.5-50.1) L 10/05/17 01:08 MCH 27.8 pg (28.0-33.3) L 10/05/17 01:08 MCHC 31.5 g/dL (31.6-35.5) L 10/05/17 01:08 RDW 14.6 % (11.5-14.5) H 10/05/17 01:08 Nucleated RBCs/100 WBC 0.2 /100 WBC (0) H 10/03/17 00:25 Carbon Dioxide 22 mEq/L (23-29) L 10/05/17 01:08 BUN 37 mg/dL (8-23) H 10/05/17 01:08 Creatinine 1.52 mg/dL (0.70-1.30) H 10/05/17 01:08 Est GFR ( Amer) 53 (> 60) L 10/05/17 01:08 Est GFR (Non-Af Amer) 44 (> 60) L 10/05/17 01:08 Glucose 190 mg/dL (70-105) H 10/05/17 01:08 POC Glucose 157 mg/dL (70-99) H 10/05/17 16:13 Calcium 8.3 mg/dL (8.6-10.3) L 10/05/17 01:08 - VTE Documentation of Mechanical Device: Venous foot pump, device Consult Discharge Plan - Plan Referrals: Tiara Dodge DO [Primary Care Provider] - NONE,PCP [Family Provider] -
[2017-10-05] MEDS: *HR* HYDROcodone/Acet 5/325 mg TABLET PO PRN (22:46)
[2017-10-06 07:10] LABS: Hematocrit 27.9 % (37.5-50.1); Mean Corpuscular Hemoglobin 29.3 pg (28.0-33.3); Mean Corpuscular Volume 88.9 fL (83.0-100.0); Mean Platelet Volume 9.1 fL (9.4-12.4); Platelet Count 170 K/mcL (140-400); Red Blood Count 3.14 M/mcL (4.19-5.50); Red Cell Distribution Width 14.5 % (11.5-14.5)
[2017-10-06 07:15] LABS: Hemoglobin 9.2 g/dL (12.9-16.9)
[2017-10-06] MEDS: *HR* Enoxaparin 30 MG/0.3 ML SYRINGE SQ SCH ×2 (07:18→07:46)
[2017-10-06 07:25] LABS: BUN/Creatinine Ratio 25 (6-26); Blood Urea Nitrogen 32 mg/dL (8-23); Calcium 8.2 mg/dL (8.6-10.3); Carbon Dioxide 22 mEq/L (23-29); Chloride 107 mEq/L (98-107); Glucose 175 mg/dL (70-105); Osmolality,Calculated 295 (280-300); Potassium 4.4 mEq/L (3.5-5.1); Sodium 137 mEq/L (136-145); eGFR For African Americans > 60 (> 60); eGFR For Non-African Americans 54 (> 60)
[2017-10-06] MEDS: Cyanocobalamin (B-12) 1,000 MCG TABLET PO SCH (07:45)
[2017-10-06] MEDS: Insulin LISPRO 300 UNITS/3 ML VIAL SQ SCH ×2 (07:45→12:16)
[2017-10-06] MEDS: Folic Acid 1 MG TABLET PO SCH (07:46)
[2017-10-06] MEDS: Finasteride 5 MG TABLET PO SCH ×2 (07:46)
[2017-10-06] MEDS: *HR* OxyCODONE Immed Rel 5 MG TABLET PO PRN ×3 (07:48→16:34)
[2017-10-06 10:56] VITALS: BP 129/89
[2017-10-06] MEDS: *HR* HYDROcodone/Acet 5/325 mg TABLET PO PRN (13:24)
--- NOTE | 2017-10-06 14:19 | Discharge Summary ---
- NOTES TO OUTPATIENT PROVIDER Notes to Outpatient Provider: The patient sustained left hip fracture. He underwent intramedullary nailing of left peritrochanteric femur fracture on 10/03. [facility] Orders not resulted at time of discharge: None pending. Date of Encounter: 10/06/17 Time of Encounter: 14:18 - Discharge Diagnosis (1) Femur fracture, left Priority: Primary Status: Acute Qualifiers: Encounter type: initial encounter Femur location: neck Fracture type: closed Qualified Code(s): S72.002A - Fracture of unspecified part of neck of left femur, initial encounter for closed fracture (2) Acute blood loss anemia Priority: Secondary Status: Acute (3) Physical deconditioning Priority: Secondary Status: Chronic (4) Adenocarcinoma of lung, stage 4 Priority: Secondary Status: Acute Comments: ++The problem is in remission. Treatment, as per outpatient oncology. Qualifiers: Laterality: unspecified laterality Qualified Code(s): C34.90 - Malignant neoplasm of unspecified part of unspecified bronchus or lung (5) Prostatism Priority: Secondary Status: Chronic (6) DVT prophylaxis Priority: Secondary Status: Acute Hospital course: Mr. Wang is a 82 year old male Was admitted to the hospital after sustaining left hip fracture. It happened when he was stepping out of a lawnmower. After the admission he underwent intra medullary nailing of left hip. He developed mild postop anemia. He started physical therapy. It will be continued in extended-care facility.The patient is allowed to do toe-touch weight-bearing. It will be increased gradually, as per orthopedic service. Discharge discussed with: patient, family, nurse, case management - Time Spent with Patient Total time spent providing and/or coordinating discharge services: Greater than 30 minutes Specific discharge activities: 40 minutes for discharge. - Discharge Medications Prescriptions: Enoxaparin [Lovenox] 40 mg SQ DAILY 7 Days #7 syr HYDROcodone/Acet 5/325 mg [[facility] 5-325 mg] 1 tab PO Q6H PRN 7 Days #20 tab PRN Reason: Moderate Pain Home Medications: Cyanocobalamin (B-12) [Vitamin B12] 1,000 mcg PO DAILY #90 tablet 11/13/16 [Rx] Folic Acid 1 mg PO DAILY #90 tablet 11/13/16 [Rx] Pioglitazone HCl [Actos] 30 mg PO DAILY 11/13/16 [History] Tamsulosin [Flomax] 0.4 mg PO DAILY 10/02/17 [History] Finasteride [Proscar] 5 mg PO DAILY 10/03/17 [History] Levothyroxine [Synthroid] 88 mcg PO QAM 10/03/17 [History] Omeprazole [PriLOSEC] 40 mg PO DAILY 10/03/17 [History] Tramadol HCl [Ultram] 50 mg PO DAILY PRN 10/03/17 [History] glipiZIDE [Glucotrol] 5 mg PO DAILY 10/03/17 [History] Acetaminophen [Tylenol] 650 mg PO Q6HR PRN tablet 10/06/17 [Rx] Enoxaparin [Lovenox] 40 mg SQ DAILY 7 Days #7 syr 10/06/17 [Rx] Finasteride [Proscar] 5 mg PO DAILY tablet 10/06/17 [Rx] HYDROcodone/Acet 5/325 mg [[facility] 5-325 mg] 1 tab PO Q6H PRN 7 Days #20 tab 10/06 [Rx] Allergies/Adverse Reactions: 3 Allergy/AdvReac Type Severity Reaction Status Date / Time levofloxacin [From Levaquin] AdvReac Unknown Unknown Verified 07/20/17 11:56 iodine AdvReac Itching Verified 07/20/17 11:56 Date of admission: 10/02/17 19:56 Primary care physician: Yadira Gloria Consults: 10/02/17 20:32 Consult to Occupational Therapy [CONS] Routine Comment: Evaluate, develop and implement POC Reason for Consult: therapy/placement needs Does patient have active BEDREST order?: No Is patient medically & hemodynamically stable?: Yes Consult to Physical Therapy [CONS] Routine Comment: Evaluate, develop and implement POC Reason for Consult: PT eval Does patient have active BEDREST order?: No Is patient medically & hemodynamically stable?: Yes 10/02/17 20:33 Consult to Orthopedic Surgery [CONS] Routine Consulting Provider: Orthopedic and Sports Medicine Reason for Consult: femur fracture Call Completed: Yes 10/03/17 13:20 Consult to Bow Maker Machine Tender [CONS] Routine Reason for SW Consult: post-op Discharging clinician: Wojciech M Sobieraj Anticipated date of discharge: 10/06/17 - Constitutional Vitals: Temp Pulse Resp BP Pulse Ox 98.4 F 89 18 129/89 94 10/06/17 10:55 10/06/17 10:55 10/06/17 10:55 10/06/17 10:55 10/06/17 10:55 General appearance: Present: A&O X 3, pleasant, no acute distress, answers questions appropriately - Respiratory Respiratory exam: Present: CTAB. Absent: rales, rhonchi, wheezes - Cardiovascular Cardiovascular exam: Present: RRR. Absent: diastolic murmur, gallop, systolic murmur - GI/Abdominal GI/Abdominal exam: Present: normal bowel sounds, soft, no peritoneal signs. Absent: distended, tenderness - Skin Skin exam: Present: dry, intact - Patient Status Disposition: Transfer Inpatient Rehab Fac Condition: Fair - Discharge Instructions Follow Up With: Tiara Dodge DO [Primary Care Provider] - NONE,PCP [Family Provider] - Additional Instructions: Discharge Instructions: IM Nailing Please call Dr. Pond, your Primary Care Physician, or report to the Emergency Room if you have any of the following symptoms: Nausea, vomiting, fever greater that 101.5, swelling, chest pain, shortness of breath, increased pain/redness/ drainage/odor for your incision site, numbness/tingling, or any other concerning symptoms. ACTIVITY: Toe touch weight bearing MEDICATIONS: Upon discharge resume your home medications. Take all the medications as prescribed. Take a stool softener if taking narcotic pain medications. Stool softeners are only effective if you drink enough fluids. Drink 6-8 glass of water or fluids a day, unless this is not allowed for another health problem. Despite using stool softeners, if you haven't had a bowel movement in 3 days, please switch to a gentle laxative. Gentle laxatives are sold over the counter. You should have a bowel movement within 24 hours, if not call the office. You will be discharged from the hospital with a prescription for pain medication. You are encouraged to decrease the use of narcotic pain medication as tolerated. Should you require a refill, please call the office.. To help control the post-operative pain, you may take NSAIDs (Aleve,Advil, Motrin, ibuprofen, naprosyn) or Tylenol as prescribed on the bottle in addition to the pain medication. ANTICOAGULATION (blood thinners): Continue your Aspirin, Lovenox or Coumadin as prescribed to help prevent a blood clot in the leg or in the lungs. As long as your incision remains dry and you tolerate the NSAIDs (Aleve, Advil, Motrin, Ibuprofen, Naprosyn), it is OK to use the NSAIDS while you are taking your anticoagulation medication. Should your incision start to drain, stop the NSAID and contact our office. Common symptoms of blood clot in the legs include: localized pain, swelling, calf tenderness, redness or discoloration of the skin. Blood clot in the lung symptoms include: shortness of breath, rapid pulse, sweating, and chest pain that worsens with deep breathing, coughing up blood, lightheadedness, feelings of anxiety. If you experience any of these symptoms notify your physician immediately, go to the emergency room, or if having trouble breathing, call 911. WOUND CARE: Leave dressing in place until follow up appointment. Dressing is waterproof, but use care when showering or bathing. Keep incision area clean, dry, and intact. FOLLOW-UP: Please follow up with your surgeon in the orthopedic clinic in 6 weeks from the day of surgery. If you have rodney that need to be removed, you will need to come back to the office in 10-14 days from the day of surgery. - Diet and Activity Activity: ambulate only with your walker, as per physical therapy, increase activity as tolerated, other (Toe-touch weight-bearing.) - VTE Documentation of Mechanical Device: Venous foot pump, device
--- NOTE | 2017-10-06 15:27 | Physician Discharge Referral ---
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 (5) Physical deconditioning Priority: Secondary Status: Chronic (6) Prostatism Priority: Secondary Status: Chronic (7) DVT prophylaxis Priority: Secondary Status: Acute - Transfer Medications Prescriptions: Enoxaparin [Lovenox] 40 mg SQ DAILY 7 Days #7 syr HYDROcodone/Acet 5/325 mg [[place] 5-325 mg] 1 tab PO Q6H PRN 7 Days #20 tab PRN Reason: Moderate Pain Home Medications: Cyanocobalamin (B-12) [Vitamin B12] 1,000 mcg PO DAILY #90 tablet 11/13/16 [Rx] Folic Acid 1 mg PO DAILY #90 tablet 11/13/16 [Rx] Pioglitazone HCl [Actos] 30 mg PO DAILY 11/13/16 [History] Tamsulosin [Flomax] 0.4 mg PO DAILY 10/02/17 [History] Finasteride [Proscar] 5 mg PO DAILY 10/03/17 [History] Levothyroxine [Synthroid] 88 mcg PO QAM 10/03/17 [History] Omeprazole [PriLOSEC] 40 mg PO DAILY 10/03/17 [History] Tramadol HCl [Ultram] 50 mg PO DAILY PRN 10/03/17 [History] glipiZIDE [Glucotrol] 5 mg PO DAILY 10/03/17 [History] Acetaminophen [Tylenol] 650 mg PO Q6HR PRN tablet 10/06/17 [Rx] Enoxaparin [Lovenox] 40 mg SQ DAILY 7 Days #7 syr 10/06/17 [Rx] Finasteride [Proscar] 5 mg PO DAILY tablet 10/06/17 [Rx] HYDROcodone/Acet 5/325 mg [[place] 5-325 mg] 1 tab PO Q6H PRN 7 Days #20 tab 10/06 [Rx] Allergies/Adverse Reactions: 3 Allergy/AdvReac Type Severity Reaction Status Date / Time levofloxacin [From Levaquin] AdvReac Unknown Unknown Verified 07/20/17 11:56 iodine AdvReac Itching Verified 07/20/17 11:56 - Respiratory Orders Smoking Cessation: Smoking cessation has been advised. For more information, call the [place] Tobacco Quit Line at 1-326-FOHM-NOW. - Mobility Orders Other - Rehabiliation Orders Rehab Potential: Fair (DIABETIC DIET OF 1800 AKASH.) CERTIFICATION: I certify that the transfer of the above named patient to an Extended Care Facility is necessary for the continuing treatment of the diagnosis listed. The above information is true and accurate reflection of patient's current condition. Confidential - Redisclosure prohibited without a patient's written consent.
[2017-10-06] MEDS ORDERED: *HR* Enoxaparin 30 MG/0.3 ML SYRINGE SQ SCH (18:00)
== END 2017-10-06 16:47 | DRG 481 ==
LOC: SUATTDRO 19:56 → 3NENU 19:56
PROVIDERS: ADMIT Internal Medicine; ATTEND Internal Medicine